=== PATIENT | male | born 1985 | race African-American/Black ===

== ENCOUNTER 2016-04-23 05:16 | Emergency (ER) | payer SELFPAY ==
[2016-04-23 05:25] VITALS: BP 118/75; PULSE 78; TEMP 98.3; BMI 19.0
[2016-04-23] MEDS ORDERED: CLINDAMYCIN HCL 150 MG CAPSULE (FP) ONE (05:32)
[2016-04-23] MEDS ORDERED: KETOROLAC TROMETHAMINE 60 MG/2 ML VIAL ONE (05:32)
--- NOTE | 2016-04-23 05:33 | PDOC ---
History of Present Illness - General Chief Complaint: Pain, Acute Stated Complaint: ABCESS TO MOUTH Time Seen by Provider: 04/23/16 05:24 History Source: Patient Exam Limitations: No Limitations - History of Present Illness Initial Comments: 04/23/16 05:25 This is a 30-year-old male who comes in complaining of an abscess in the roof of his mouth. Patient denies any fever chills or any other complaints. PAST MEDICAL HISTORY: no significant history PAST SURGICAL HISTORY: no significant history FAMILY HISTORY: no pertinant history SOCIAL HISTORY: Pt lives with family and is employed. MEDICATIONS: reviewed ALLERGIES: As per nursing notes Review of Systems General: No fevers or chills, no weakness, no weight loss HEENT: No change in vision. No sore throat,. No ear pain, abscess roof of mouth CardioVascular: No chest pain or shortness of breath Respiratory:No cough, or wheezing. Gastrointestinal: no nausea, vomitting, diarrhea or constipation, No rectal bleeding Genitourinary: No dysuria, hematuria, or frequency Musculoskeletal: No joint or muscle pain or swelling Neurologic: No headache, vertigo, dizziness or loss of consciousness Psychiatric: nor depression Skin: No rashes or easy bruising Endocrine: no increased thirst or abnormal weight change Allergic: no skin or latex allergy All other systems reviewed and normal GENERAL: The patient is awake, alert, and fully oriented, in no acute distress. HEAD: Normal with no signs of trauma. mouth: There is a small abscess anteriorly in the roof of the mouth EYES: Pupils equal, round and reactive to light, extraocular movements intact, sclera anicteric, conjunctiva clear. EXTREMITIES: Normal range of motion, no edema. NEUROLOGICAL: Normal speech, normal gait. PSYCH: Normal mood, normal affect. SKIN: Warm, Dry, normal turgor, no rashes or lesions noted. Procedure: Incision and draining Abscess was anesthetized with 1% lidocaine no epinephrine Abscess was opened with a #11 blade. Small amount of purulent material was removed Patient tolerated well Assessment and plan: This is a 30-year-old male with a small abscess in his mouth that was incised and drained however was unable to fully drain and so patient started on clindamycin also given pain medication in the emergency room. Patient told to follow-up with his dentist tomorrow. Past History - Past Medical History Allergies/Adverse Reactions: Allergies Allergy/AdvReac Type Severity Reaction Status Date / Time morphine Allergy Verified 04/23/16 05:17 Home Medications: Ambulatory Orders NK [No Known Home Medication] 04/23/16 Other medical history: DENIES - Immunization History Immunization Up to Date: No - Psycho/Social/Smoking Cessation Hx Anxiety: No Suicidal Ideation: No Smoking History: Current every day smoker Have you smoked in the past 12 months: Yes Number of Cigarettes Smoked Daily: 4 Information on smoking cessation initiated: Yes 'Breaking Loose' booklet given: 04/23/16 Hx Alcohol Use: No Drug/Substance Use Hx: No Substance Use Type: None *Physical Exam - Vital Signs Last Vital Signs Temp Pulse Resp BP Pulse Ox 98.3 F 78 16 118/75 100 04/23/16 05:18 04/23/16 05:18 04/23/16 05:18 04/23/16 05:18 04/23/16 05:18 *DC/Admit/Observation/Transfer Diagnosis at time of Disposition: Abscess of mouth - Discharge Dispostion Disposition: HOME Condition at time of disposition: Stable Admit: No - Patient Instructions Additional Instructions: For the pain take ibuprofen or Tylenol. For the infection take clindamycin 1 tablet 4 times a day for 5 days. Return to the emergency department immediately with ANY new, persistent or worsening symptoms. Continue any medications as previously prescribed by your physician. You should follow up with your dentist as soon as possible regarding today's emergency department visit. . Please make sure your doctor reviews the results of your emergency evaluation. Thank you for coming to the Emergency Department today for your care. It was a pleasure to see you today. Please note that your evaluation is INCOMPLETE until you follow-up with your doctor.
[2016-04-23] MEDS ORDERED: KETOROLAC TROMETHAMINE 60 MG/2 ML VIAL IM ONE (05:34)
[2016-04-23] MEDS ORDERED: CLINDAMYCIN HCL 300 MG CAPSULE PO ONE (05:35)
== END 2016-04-23 05:40 | disposition home or self-care (01) ==
LOC: FER 05:16
PROC: 0H91XZZ Drainage of Face Skin, External Approach (ICD-10-PCS; principal; 2016-04-23)
PROC: 3E0233Z Introduction of Anti-inflammatory into Muscle, Percutaneous Approach (ICD-10-PCS; 2016-04-23)
DX: K12.2 Cellulitis and abscess of mouth (principal); F17.210 Nicotine dependence, cigarettes, uncomplicated
CPT/HCPCS: 99281-25

== ENCOUNTER 2016-05-30 06:24 | Emergency (ER) | payer OTHER ==
--- NOTE | 2016-05-30 06:31 | PDOC ---
History of Present Illness - General Chief Complaint: Nausea/Vomiting Stated Complaint: N/V/D Time Seen by Provider: 05/30/16 06:29 - History of Present Illness Initial Comments: 05/30/16 06:41 This 30-year-old male with no significant past medical history presents with a day and a half episode of nausea/vomiting/diarrhea. Patient states that night before last he began having nausea followed by vomiting of semi-digested food. He continued to vomit with emesis eventually becoming bilious. He denies charly blood or coffee ground material in his vomit. He states that he continues to vomit even after drinking water, although in the last 12 hours vomiting comes "after a while". During the day yesterday, he developed watery diarrhea. He denies charly blood or mucus in the stool. He has had mild discomfort but no serious pain. He has not had fever or chills. No recent travel or unusual food ingestions. He has had no known contacts with other people with these symptoms. ALLERGIES: Morphine (throat swelling) No medications Patient smokes less than half pack a day of cigarettes. Occasional alcohol use only. No other recreational drug use Past History - Past Medical History Allergies/Adverse Reactions: Allergies Allergy/AdvReac Type Severity Reaction Status Date / Time morphine Allergy Verified 04/23/16 05:17 Home Medications: Ambulatory Orders Ondansetron [Zofran Odt -] 4 mg SL TID PRN #10 od.tablet 05/30/16 - Immunization History Immunization Up to Date: No - Psycho/Social/Smoking Cessation Hx Anxiety: No Suicidal Ideation: No Smoking History: Current every day smoker Have you smoked in the past 12 months: Yes Number of Cigarettes Smoked Daily: 4 'Breaking Loose' booklet given: 04/23/16 Hx Alcohol Use: No Drug/Substance Use Hx: No Substance Use Type: None Review of Systems - Review of Systems Able to Perform ROS?: Yes Comments:: 12 point review of systems is negative except for what is noted in the history of present illness *Physical Exam - Physical Exam Comments: GENERAL: Awake, alert, and fully oriented adult male, in no acute distress HEAD: No signs of trauma EYES: PERRLA, EOMI, sclera anicteric, conjunctiva clear ENT: Auricles normal inspection, hearing grossly normal, nares patent, oropharynx clear without exudates. Dry mucosa NECK: Normal ROM, supple, no lymphadenopathy, JVD, or masses LUNGS: Breath sounds clear and equal. No wheezes, and no crackles HEART: Regular rate and rhythm, normal S1 and S2, no murmurs, rubs or gallops ABDOMEN: Soft, nontender, normoactive bowel sounds. No guarding, no rebound. No masses EXTREMITIES: Normal range of motion, no edema. No clubbing or cyanosis. No cords, erythema, or tenderness NEUROLOGICAL: Cranial nerves II through XII grossly intact. Normal speech, normal gait SKIN: Warm, Dry, normal turgor, no rashes or lesions noted. Progress Note - Progress Note Progress Note: Because the patient has had intolerance to all ingested fluids for the last day and a half, and appears to be clinically dehydrated on exam, the patient will receive 1 L normal saline IV and Zofran 4 mg IV. Patient instructed to stay home from work today. He will continue clear liquids and advance diet very slowly. He should return to the ER if he has persistent vomiting or develops fever/pain in his abdomen Patient states that he does not have a general medical doctor at this time; he will be given referral information for Dr. Dias, with whom he should follow- up within 1 week *DC/Admit/Observation/Transfer Diagnosis at time of Disposition: Acute gastroenteritis - Discharge Dispostion Condition at time of disposition: Stable - Prescriptions Prescriptions: Ondansetron [Zofran Odt -] 4 mg SL TID PRN #10 od.tablet PRN Reason: Nausea - Referrals Referrals: Thad Dias MD [Staff Physician] - 1 week - Patient Instructions Printed Discharge Instructions: DI for Viral Gastroenteritis -- Adult Additional Instructions: Clear liquids; advance diet slowly Zofran 4 mg ODT up to 3 times a day as needed for nausea imodium/pepto bismol as needed for diarrhea No work today Can return to work on next scheduled day (06/02) Return to ER if you have persistent vomiting or develop abdominal pain/fever Follow-up with Dr Dias(general medical doctor) within the next week - Post Discharge Activity Work/School Note: Back to Work
[2016-05-30 06:33] VITALS: TEMP 97.7; BMI 19.5
[2016-05-30] MEDS ORDERED: SODIUM CHLORIDE 1,000 ML IV STA (06:39)
[2016-05-30] MEDS ORDERED: ONDANSETRON 4 MG/2 ML VIAL IVPUSH ONE (06:39)
[2016-05-30] MEDS ORDERED: ONDANSETRON 4 MG/2 ML VIAL ONE (06:41)
[2016-05-30 07:34] VITALS: BP 96/75; PULSE 76
== END 2016-05-30 08:47 | disposition home or self-care (01) ==
LOC: FER 06:24
PROC: 3E033GC Introduction of Other Therapeutic Substance into Peripheral Vein, Percutaneous Approach (ICD-10-PCS; principal; 2016-05-30)
PROC: 3E0337Z Introduction of Electrolytic and Water Balance Substance into Peripheral Vein, Percutaneous Approach (ICD-10-PCS; 2016-05-30)
DX: K52.9 Noninfective gastroenteritis and colitis, unspecified (principal); Z72.0 Tobacco use
CPT/HCPCS: 99282-25

== ENCOUNTER 2018-01-21 09:08 | Emergency (ER) | payer OTHER ==
[2018-01-21 09:14] VITALS: BP 115/75; PULSE 81; TEMP 97.9; BMI 19.5
[2018-01-21] MEDS ORDERED: IBUPROFEN 600 MG TABLET (FP) PO ONE ×2 (09:25→09:30)
--- NOTE | 2018-01-21 09:25 | PDOC ---
History of Present Illness - General Chief Complaint: Pain Stated Complaint: BOTH KNEE PAIN Time Seen by Provider: 01/21/18 09:17 History Source: Patient (Patient walked in complaining of bilateral knees pains since yesterday. 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[employer], lifting trays, a lot of standing, walking etc ) Exam Limitations: No Limitations - History of Present Illness Timing/Duration: 24 hours Severity: moderate Modifying Factors: improves with: rest Associated Symptoms: reports: denies symptoms Past History - Travel Traveled outside of the country in the last 30 days: No - Past Medical History Allergies/Adverse Reactions: Allergies Allergy/AdvReac Type Severity Reaction Status Date / Time morphine Allergy Verified 01/21/18 09:09 Home Medications: Ambulatory Orders Ibuprofen [Motrin -] 400 mg PO TID #21 tablet 01/21/18 COPD: No Other medical history: denies any significant past medical history - Family Disease History Comment:: Denies any significant family history, No sickle cell or similar 01/21/18 09:32 - Immunization History Immunization Up to Date: No - Suicide/Smoking/Psychosocial Hx Smoking History: Never smoked Have you smoked in the past 12 months: No Number of Cigarettes Smoked Daily: 4 Information on smoking cessation initiated: No 'Breaking Loose' booklet given: 04/23/16 Hx Alcohol Use: No Drug/Substance Use Hx: No Substance Use Type: None Review of Systems - Review of Systems Able to Perform ROS?: Yes Is the patient limited Icelandic proficient: Yes Constitutional: No: Symptoms Reported, See HPI, Chills, Diaphoresis, Fever, Loss of Appetite, Malaise, Night Sweats, Weakness, Weight Stable, Unintentional Wgt. Loss, Unexplained wgt Loss, Other HEENTM: No: Symptoms Reported, See HPI, Eye Pain, Blurred Vision, Tearing, Recent change in vision, Double Vision, Cataracts, Ear Pain, Ocular Prothesis, Ear Discharge, Nose Pain, Nose Congestion, Tinnitus, Nose Bleeding, Hearing Loss , Throat Pain, Throat Swelling, Mouth Pain, Dental Problems, Difficulty Swallowing, Mouth Swelling, Other Musculoskeletal: Yes: Symptoms Reported, See HPI, Joint Pain. No: Joint Swelling, Muscle Pain, Muscle Weakness Integumentary: No: Symptoms Reported, See HPI, Bruising, Change in Color, Change in Hair/Nails, Dryness, Erythema, Flushing, Lesions, Lumps, Pallor, Pruritus, Rash, Sweating, Other Neurological: No: Symptoms reported, See HPI, Headache, Numbness, Paresthesia, Pre-Existing Deficit, Seizure, Tingling, Tremors, Weakness, Unsteady Gait, Ataxia, Dizziness, Other Psychiatric: No: Anxiety, Depression, Frequent Crying, Stressors, Sleep Pattern Change, Emotional Problems, Mood Swings, Change in Appetite, Other Endocrine: No: Symptoms Reported, See HPI, Excessive Sweating, Flushing, Intolerance to Cold, Intolerance to Heat, Increased Hunger, Increased Thirst, Increased Urine, Unexplained Weight Gain, Unexplained Weight Loss, Change in Weight, Other All Other Systems: Reviewed and Negative *Physical Exam - Vital Signs Last Vital Signs Temp Pulse Resp BP Pulse Ox 97.9 F 81 20 115/75 100 01/21/18 09:08 01/21/18 09:08 01/21/18 09:08 01/21/18 09:08 01/21/18 09:08 - Physical Exam General Appearance: Yes: Nourished, Appropriately Dressed, Mild Distress, Thin HEENT: positive: TERRY Neck: positive: Supple Respiratory/Chest: positive: Lungs Clear Cardiovascular: positive: Regular Rate Extremity: positive: Normal Capillary Refill, Normal Inspection, Normal Range of Motion, Other (Mild to moderate tenderness on the medial aspect of both knees.Otherwise full range of motion equal strength , Normal temperature ) Integumentary: negative: Normal Color, Dry, Warm, Cyanotic, Erythema, Jaundice, Mottled, Pale, Cold, Clammy, Diaphoresis, Moist, Hives, Petechiae, Rash, Swelling, Ecchymosis, Bruising, Other Neurologic: positive: Fully Oriented, Alert, Normal Mood/Affect Moderate Sedation - Procedure Monitoring Vital Signs: Procedure Monitoring Vital Signs Temperature 97.9 F 01/21/18 09:08 Pulse Rate 81 01/21/18 09:08 Respiratory Rate 20 01/21/18 09:08 Blood Pressure 115/75 01/21/18 09:08 O2 Sat by Pulse Oximetry (%) 100 01/21/18 09:08 Medical Decision Making - Medical Decision Making Based on a clinical presentation patient seems to have knee pain secondary to overuse, standing, lifting etc X ray read as NAD Patient feels improved after medicationgiven in ER. Will follow up with PCP ( as per insurance 01/21/18 10:16 *DC/Admit/Observation/Transfer Diagnosis at time of Disposition: Knee pain, bilateral Qualifiers: Chronicity: acute Qualified Code(s): M25.561 - Pain in right knee; M25.562 - Pain in left knee - Discharge Dispostion Disposition: HOME Condition at time of disposition: Stable Decision to Admit order: No - Referrals Referrals: Mc Yan MD [Staff Physician] - - Patient Instructions Printed Discharge Instructions: DI for Knee Pain - Post Discharge Activity Forms/Work/School Notes: Back to Work
== END 2018-01-21 10:42 | disposition home or self-care (01) ==
LOC: FER 09:08
DX: M25.561 Pain in right knee (principal); M25.562 Pain in left knee; Z72.0 Tobacco use
CPT/HCPCS: 73560-TC-LT-FY; 73560-TC-RT-FY; 99282-25